=== PATIENT | male | born 1990 ===

== ENCOUNTER → 2020-11-20 | Outpatient (CLI) | payer BC ==
--- NOTE | 2020-11-20 15:24 | XCELERA REPORT ---
[address] [address] Transthoracic Echocardiogram Report Name: OH PINK III Age: 30 yrs Gender: Male : 1990 Patient Status: Outpatient Patient Location: [facility] Study Date: 11/20/2020 10:09 AM History: CHF Fatigue Height: 70 in Weight: 160 lb BSA: 1.9 m2 Procedure: A complete two-dimensional transthoracic echocardiogram was performed (2D, M-mode, spectral and color flow Doppler). The study was technically difficult with many images being suboptimal in quality. Reason For Study: EXERCISE INTOLERANCE ARRHYTHMIAS Previous Evaluation: No previous studies were available. History: Effort intolerance Arrrhythmias. Ordering Physician: VIOLET FLORES Performed By: Jeana Blank Interpretation Summary Left ventricular systolic function is normal. The Ejection Fraction estimate is 55-60% The right ventricle is normal in size and function. There is no mitral regurgitation noted. There is no aortic valve stenosis There is a trace or physiologic amount of tricuspid regurgitation There is no pericardial effusion. MMode/2D Measurements & Calculations RVDd: 2.0 cm LVIDd: 5.0 cm FS: 33.8 % Ao root diam: IVSd: 0.96 cm LVIDs: 3.3 cm EDV(Teich): 2.7 cm LVPWd: 0.98 cm 120.6 ml Ao root area: ESV(Teich): 5.8 cm2 45.4 ml EF(Teich): 62.4 % EDV(MOD-sp4): SV(MOD-sp4): 118.6 ml 77.0 ml ESV(MOD-sp4): 41.6 ml EF(MOD-sp4): 64.9 % Doppler Measurements & Calculations MV E max jong: MV dec slope: Ao V2 max: LV V1 max P.5 cm/sec 114.5 cm/sec 4.0 mmHg MV A max jong: 358.9 cm/sec2 Ao max PG: LV V1 max: 59.4 cm/sec MV dec time: 0.21 sec5.2 mmHg 100.4 cm/sec MV E/A: 1.3 PA V2 max: TR max jong: 106.3 cm/sec 190.2 cm/sec PA max P.5 mmHg TR max P.6 mmHg Left Ventricle The left ventricle is normal in size. There is normal left ventricular wall thickness. Left ventricular systolic function is normal. The Ejection Fraction estimate is 55-60%. Doppler measurements suggest normal left ventricular diastolic function. No regional wall motion abnormalities noted. Right Ventricle The right ventricle is normal in size and function. Atria The right atrium is normal in size. The left atrial size is normal. The interatrial septum is intact with no evidence for an atrial septal defect. There is no Doppler evidence for an interatrial shunt. Mitral Valve The mitral valve is grossly normal. There is no evidence of mitral valve prolapse. There is no mitral valve stenosis. There is no mitral regurgitation noted. Aortic Valve The aortic valve opens well. There is no aortic valve stenosis. No aortic regurgitation is present. Tricuspid Valve The tricuspid valve is normal in structure and function. There is a trace or physiologic amount of tricuspid regurgitation. Tricuspid regurgitation jet envelope not well defined to measure RV systolic pressure accurately. Pulmonic Valve The pulmonic valve is not well visualized. Great Vessels The aortic root is normal size. The inferior vena cava appeared normal and decreased > 50% with respiration (RAP 5-10 mmHg). Effusions There is no pericardial effusion. : VIOLET FLORES Anil
== END ==
LOC: SP 09:39
PROVIDERS: ATTEND Family Medicine
DX: I49.9 Cardiac arrhythmia, unspecified (principal); R68.89 Other general symptoms and signs
CPT/HCPCS: 93306